=== PATIENT | male | born 1950 | race Caucasian/White ===

== ENCOUNTER → 2016-12-25 | Outpatient (CLI) | payer OTHER ==
--- NOTE | 2016-12-25 10:08 | DX ---
1. Right Shoulder , 3 Views History: Pain post trauma. Fell down stairs yesterday. M25.511 Findings: The humeral head is well rounded and normally located. No fracture or dislocation is identi fied. The AC joint is normally aligned. Impression: Nothing acute identified. 2. Right Scapula, 2 views History: Pain post trauma, M 25.511, fall yesterday Findings: No scapular fracture identified. No right posterior rib fracture identified. Impression: Negative.
== END ==
LOC: BRMIMAGING 09:27
PROVIDERS: ATTEND Physician Assistant Medical
DX: M25.511 Pain in right shoulder (principal)
CPT/HCPCS: 73010-PO; 73030-PO

== ENCOUNTER → 2018-05-20 | Outpatient (CLI) | payer OTHER | LOC: BRMIMAGING 15:49 | PROVIDERS: ATTEND Physician Assistant | DX: S82.832A Other fracture of upper and lower end of left fibula, initial encounter for closed fracture (principal) | CPT/HCPCS: 73610-PO ==